=== PATIENT | male | born 1960 | race Caucasian/White ===

== ENCOUNTER 2021-10-29 01:40 | Emergency (ER) | payer OTHER ==
[~2021-10-29] VITALS: Ht 177.8 cm; Wt 77.2 kg
--- NOTE | 2021-10-29 01:56 | PHYS DOC ---
Adult General HPI HPI Patient is a 61-year-old male with a past medical history of mood disorder on Seroquel 300 milligrams, ablation due to SVT a day who presents via EMS with suicidal ideations and taking 2400 mg of Seroquel at 1 AM this morning in an attempt to harm himself. Denies any headache, changes in vision, neck pain, chest pain, shortness of breath, abdominal pain, nausea, vomiting. Denies any numbness/weakness/tingling. States he was also drinking alcohol all day as well. Denies any other drug use. Denies any headache or lightheadedness. (NISSA RALPH MD) Review of Systems Review of Systems Review of systems otherwise unremarkable except noted in HPI (NISSA RALPH MD) Physical Exam Physical Exam Constitutional: Well developed, well nourished, no acute distress, non-toxic appearance. [] HENT: Normocephalic, atraumatic, bilateral external ears normal, oropharynx moist, no oral exudates, nose normal. [] Eyes: Pupils 4 mm bilaterally and responsive to light, conjunctiva normal, no discharge. [] Neck: Normal range of motion, no tenderness, supple, no stridor. [] Cardiovascular: Sinus tachycardia Lungs & Thorax: Bilateral breath sounds clear to auscultation [] Abdomen: soft, no tenderness, no masses, no pulsatile masses. [] Skin: Warm, dry, no erythema, no rash. [] Back: No tenderness, no CVA tenderness. [] Extremities: No tenderness, no cyanosis, no clubbing, ROM intact, no edema. [] Neurologic: GCS of 15, alert and oriented X 3, normal motor function, normal sensory function, able to sit, stand and walk without issue, no focal deficits noted. [] Psychologic: Affect normal, judgement normal, mood normal. [] (NISSA RALPH MD) EKG EKG [] (INSSA RALPH MD) Radiology/Procedures Radiology/Procedures [] (NISSA RALPH MD) Heart Score C/O Chest Pain: No Risk Factors: Risk Factors: DM, Current or recent (<one month) smoker, HTN, HLP, family history of CAD, obesity. Risk Scores: Risk Factors: DM, Current or recent (<one month) smoker, HTN, HLP, family history of CAD, obesity. (NISSA RALPH MD) C/O Chest Pain: N/A (ROBBY HAWKINS MD) Course & Med Decision Making Course & Med Decision Making Patient is a 61-year-old male who presents with suicidal ideations and attempt taking 2400 mg of Seroquel at 12:30 AM Vital signs notable for tachycardia and hypertension as well as tachypnea. Physical exam noted above. Placed on the monitor with IV access established and IV fluid begun EKG initially with a rate of 96, QRS of 122, QTc of 474, no STEMI. Troponin not concerning. Given patient sodium channel blockade and widened QRS was started on isotonic bicarb. Cardiac pads in place. Lidocaine and bicarb push at the bedside. Laboratory analysis initially notable for hypernatremia to 146 and hypokalemia to 3.2. Repeat in 2 hours was at sodium of 151 and potassium of 2.4. Probably some shift given the bicarb. Given low potassium initially replaced with 40 mEq. Paused bicarb drip as patient still awake alert and oriented no acute distress with improved vital signs. No previous EKG to compare to. Discussed patient with poison control who is aware of treatment plan and agreed. Patient will be cleared at 7 AM. Psychiatric assessment team liaison will be back after clearance in the morning to find placement for suicidal ideations and attempt. [] (NISSA RALPH MD) Course & Med Decision Making I assumed care of the patient at 0600. Patient awaiting repeat labs repeat EKG and ultimately psychiatric evaluation. Patient continues to be stable in the emergency department from the overdose standpoint. Patient medically cleared for psychiatric evaluation. Patient with psychiatric evaluation in the emergency department. Patient at this time is fairly alert and oriented, demonstrates good insight into events last night. Patient is adamant that he does not want to pursue inpatient placement. Patient currently is adamantly denying any further thoughts of any suicidal ideation. Patient does demonstrate good insight into the significance of his gesture and overdose last night. Extensive discussion with mental health provider, as well as myself regarding the overall situation. Patient does have a vp research at the [facility], and the mental health liaison was able to contact the service and assure close follow-up. Ultimately it was felt after extensive discussion that the patient was appropriate for safety plan, with assurance from the patient that he would contact his vp research at the [facility] tomorrow and assure follow-up. Patient is aware that he will be hotlined for safety check should this not be completed. Patient continues to be alert, oriented, and adamantly denying any further suicidal thoughts. After this extensive discussion it was ultimately felt the patient was appropriate for safety planning with close insured follow-up. Return precautions discussed (ROBBY HAWKINS MD) Dragon Disclaimer Dragon Disclaimer This electronic medical record was generated, in whole or in part, using a voice recognition dictation system. (NISSA RALPH MD) Departure Departure: Impression: Primary Impression: Suicidal ideation Additional Impression: Antipsychotic overdose Disposition: HOME / SELF CARE / HOMELESS Condition: STABLE Patient Instructions: Suicidal Feelings, How to Help Yourself Additional Instructions: Return for any further thoughts of self-harm, any concerning symptoms of worsening depression. Contact your social work contacts at the [facility] for close follow-up as instructed and per the safety plan arranged for you. Return to the emergency department for any worsening symptoms or any other concerns Problem Qualifiers NISSA RALPH MD October 29, 2021 01:56 ROBBY HAWKINS MD October 29, 2021 12:49
[2021-10-29] MEDS ORDERED: IV RINGERS SOLUTION,LACTATED 1,000 ML IV ONE (02:00)
[2021-10-29] MEDS ORDERED: SODIUM BICARB ADULT 8.4% 50 MEQ/50 ML DISP.SYRIN. ONE ×2 (02:04→02:32)
[2021-10-29] MEDS ORDERED: SODIUM BICARBONATE 50 MEQ/50 ML VIAL. ONE ×2 (02:04→02:07)
[2021-10-29] MEDS ORDERED: SODIUM BICARBONATE IVF 150 MEQ in IV DEXTROSE 5% 1,000 ML IV ONE (02:15)
[2021-10-29] MEDS ORDERED: LIDOCAINE 2% SYRINGE 100 MG/5 ML DISP.SYRIN. IV ONE (02:15)
[2021-10-29 02:16] LABS: BASO % 0 % (0-3); EOS # 0.1 x10^3/uL (0.0-0.7); EOS % 4 % (0-3); HEMATOCRIT 33.8 % (39.0-53.0); HEMOGLOBIN 11.8 g/dL (13.0-17.5); LYMPH # 0.9 x10^3/uL (1.0-4.8); LYMPH % 31 % (24-48); MEAN CORPUSCULAR HEMOGLOBIN 35 pg (25-35); MEAN CORPUSCULAR HGB CONC 35 g/dL (31-37); MEAN CORPUSCULAR VOLUME 100 fL (79-100); MONO # 0.3 x10^3/uL (0.0-1.1); MONO % 10 % (0-9); NEUT # 1.7 x10^3uL (1.8-7.7); NEUT % 55 % (31-73); PLATELET COUNT 130 x10^3/uL (140-400); RED BLOOD COUNT 3.38 x10^6/uL (4.30-5.70); RED CELL DISTRIBUTION WIDTH 14.3 % (11.5-14.5)
[2021-10-29 02:19] LABS: CALCIUM 8.5 mg/dL (8.5-10.1); CREATININE 0.8 mg/dL (0.7-1.3); GFR 97.6; POTASSIUM 3.2 mmol/L (3.5-5.1)
[2021-10-29 02:26] LABS: ETHANOL 153 mg/dL (0-10)
[2021-10-29 02:27] LABS: ACETAMIN < 2.0 mcg/mL (10-30); SALIC < 2.8 mg/dL (2.8-20.0)
[2021-10-29 02:28] LABS: ALBUMIN 3.6 g/dL (3.4-5.0); ALBUMIN/GLOBULIN RATIO 1.2 (1.0-1.7); TOTAL BILIRUBIN 0.3 mg/dL (0.2-1.0); TOTAL PROTEIN 6.7 g/dL (6.4-8.2)
--- NOTE | 2021-10-29 02:39 | EKG ---
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
[2021-10-29 04:20] LABS: CALCIUM 7.2 mg/dL (8.5-10.1); CREATININE 0.7 mg/dL (0.7-1.3); GFR 113.9
[2021-10-29 04:32] LABS: POTASSIUM 2.9 mmol/L (3.5-5.1)
[2021-10-29] MEDS ORDERED: POTASSIUM CHLORIDE 20 MEQ TABLET.ER. PO ONE (05:15)
[2021-10-29] MEDS ORDERED: CALCIUM CARBONATE 500 MG TAB.CHEW PO ONE (05:15)
[2021-10-29 05:47] LABS: CLARITY,URINE CLEAR; COLOR,URINE YELLOW; GLUCOSE,URINE NEG (NEG); NITRITE,URINE NEG (NEG); UROBILINOGEN,URINE 0.2 mg/dL (0.2 mg/dL)
[2021-10-29 05:51] LABS: BACTERIA,URINE 0 /HPF (0-FEW); RBC,URINE OCC /HPF (0-2); SQUAMOUS EPITHELIAL CELL,UR OCC /LPF; WBC,URINE OCC /HPF (0-4)
[2021-10-29 05:52] LABS: BARBITURATES NEG (NEG); BENZODIAZEPINES NEG (NEG); CANNABINOIDS POS (NEG); COCAINE NEG (NEG); METHADONE NEG (NEG); OPIATES NEG (NEG); PHENCYCLIDINE NEG (NEG)
[2021-10-29 05:53] LABS: AMPHETAMINE/METHAMPHETAMINE NEG (NEG)
[2021-10-29 06:12] LABS: CALCIUM 7.5 mg/dL (8.5-10.1); CREATININE 0.6 mg/dL (0.7-1.3); GFR 136.1; MAGNESIUM 1.7 mg/dL (1.8-2.4)
[2021-10-29 06:14] LABS: POTASSIUM 3.1 mmol/L (3.5-5.1)
--- NOTE | 2021-10-29 06:24 | EKG ---
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
[2021-10-29] MEDS ORDERED: IV RINGERS SOLUTION,LACTATED 500 ML IV ONE (06:30)
[2021-10-29 13:07] LABS: CALCIUM 8.4 mg/dL (8.5-10.1); CREATININE 0.8 mg/dL (0.7-1.3); GFR 97.6; POTASSIUM 3.5 mmol/L (3.5-5.1)
[2021-10-29 13:12] LABS: ALBUMIN 3.2 g/dL (3.4-5.0); ALBUMIN/GLOBULIN RATIO 1.1 (1.0-1.7); MAGNESIUM 1.7 mg/dL (1.8-2.4); TOTAL BILIRUBIN 0.4 mg/dL (0.2-1.0)
[2021-10-29 13:23] VITALS: BP 150/92
--- NOTE | 2021-10-30 00:40 | EKG ---
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
--- NOTE | 2021-10-30 06:19 | EKG ---
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
== END 2021-10-29 13:40 | disposition home or self-care (01) ==
LOC: ER 01:40
DX: T43.592A Poisoning by other antipsychotics and neuroleptics, intentional self-harm, initial encounter (principal); R45.851 Suicidal ideations; F39 Unspecified mood [affective] disorder; Z20.822 Contact with and (suspected) exposure to COVID-19; Y92.89 Other specified places as the place of occurrence of the external cause
CPT/HCPCS: 36415; 80048; 80053; 80307; 80329; 81001; 83735; 84484; 85025; 87426; 93005; 96365; 96366; 99285; G0480; J7120; U0003